=== PATIENT | female | born 1980 | race Caucasian/White ===

== ENCOUNTER 2024-06-02 10:00 | Day surgery (SDC) | payer MEDICAID ==
[2024-06-02] MEDS ORDERED: Naloxone 0.4 MG/ML SDV IVPUSH PRN (10:06)
[2024-06-02] MEDS ORDERED: fentaNYL 50 MCG/ML SDV IVPUSH PRN (10:06)
[2024-06-02] MEDS ORDERED: Morphine 2 MG/ML SYRINGE IVPUSH PRN (10:06)
[2024-06-02] MEDS ORDERED: HYDROmorphone 1 MG/ML Syringe IVPUSH PRN (10:06)
[2024-06-02] MEDS ORDERED: Phenylephrine HCl In 0.9% NaCl 1 MG/10 ML Syringe IVPUSH PRN (10:06)
[2024-06-02] MEDS ORDERED: Ondansetron 4 MG/2 ML SDV IVPUSH PRN (10:06)
[2024-06-02] MEDS ORDERED: Metoclopramide 10 MG/2 ML SDV IVPUSH PRN (10:06)
[2024-06-02] MEDS ORDERED: Albuterol 0.083% 2.5 MG/3 ML Neb Soln NEB PRN (10:06)
[2024-06-02] MEDS ORDERED: Midazolam 1 MG/ML 2 ML SDV ONE (10:40)
[2024-06-02] MEDS ORDERED: Bupivacaine 0.5% 30 ML SDV ONE (10:41)
[2024-06-02] MEDS ORDERED: Ropivacaine 0.5% 5 MG/ML 30 ML SDV ONE (10:43)
[2024-06-02] MEDS ORDERED: Lidocaine 2% 5 ML SDV ONE (10:44)
[2024-06-02] MEDS: Lactated Ringers 1,000 ML IV SCH (10:50)
[2024-06-02] MEDS ORDERED: ceFAZolin 2 GM in Sodium Chloride 0.9% 50 ML IV ONE (11:30)
[2024-06-02] MEDS ORDERED: propofoL 500 MG/50 ML 50 ML ONE (12:08)
[2024-06-02] MEDS ORDERED: Ketamine HCL/NACL, ISO-OSM 50 MG/5 ML Syringe ONE (12:09)
[2024-06-02] MEDS ORDERED: ceFAZolin 2 GM Vial ONE (12:22)
[2024-06-02] MEDS ORDERED: Ketorolac 30 MG/ML SDV ONE (12:25)
== END 2024-06-02 15:00 | disposition home or self-care (01) ==
LOC: MW.SDS 10:00
PROVIDERS: ATTEND Podiatrist Foot & Ankle Surgery
DX: M86.171 Other acute osteomyelitis, right ankle and foot (principal)
CPT/HCPCS: 28825; 76000; 82947; J0690; J2250; J2704; J2795; J7120; 01470; 64450; J0665; J1885; J3490